=== PATIENT | female | born 1975 | race Caucasian/White ===

== ENCOUNTER 2019-03-03 06:48 | Day surgery (SDC) | payer OTHER ==
[~2019-03-03] VITALS: Ht 170.2 cm; Wt 93.4 kg
[2019-03-03] MEDS ORDERED: CLINDAMYCIN PHOS 600MG/D5W PM 50 ML IV SCH (07:43)
[2019-03-03] MEDS ORDERED: BUPIVACAINE-MPF/EPI 0.25% 30 ML VIAL INJ ONE (09:32)
[2019-03-03] MEDS ORDERED: LIDOCAINE 1% 500 MG/50 ML VIAL ONE (09:33)
[2019-03-03] MEDS ORDERED: PROPOFOL 200 MG/20 ML VIAL IV ONE ×2 (09:38→10:30)
[2019-03-03] MEDS ORDERED: SEVOFLURANE 250 ML BTL INH ONE ×2 (09:38→10:30)
[2019-03-03] MEDS ORDERED: MEPERIDINE 25 MG/ML SYR ONE (09:52)
[2019-03-03] MEDS ORDERED: fentaNYL 0.05 MG/ML VIAL ONE (09:52)
[2019-03-03] MEDS ORDERED: MIDAZOLAM 2 MG/2 ML VIAL ONE (09:52)
[2019-03-03] MEDS ORDERED: LACTATED RINGERS 1,000 ML IV SCH (10:23)
[2019-03-03] MEDS ORDERED: diphenhydrAMINE 50 MG/ML VIAL IVP PRN (10:25)
[2019-03-03] MEDS ORDERED: ONDANSETRON 4 MG/2 ML VIAL IVP PRN (10:25)
[2019-03-03] MEDS ORDERED: HYDROmorphone 1 MG/ML AMP IVP PRN ×2 (10:25→10:45)
[2019-03-03] MEDS ORDERED: MEPERIDINE 25 MG/ML SYR IVP PRN (10:25)
[2019-03-03] MEDS ORDERED: ONDANSETRON 4 MG/2 ML VIAL IV PRN (10:45)
[2019-03-03] MEDS ORDERED: HYDROcodone/APAP 5/325 MG 1 TAB TAB PO PRN (10:45)
[2019-03-03] MEDS ORDERED: MORPHINE SULFATE 4 MG/ML SYR IV PRN (10:45)
[2019-03-03] MEDS ORDERED: MORPHINE SULFATE 2 MG/ML SYR IVP PRN (10:45)
== END 2019-03-03 12:35 | disposition home or self-care (01) ==
LOC: MDS 06:48 → MMU 06:48 → MDS 12:35
PROVIDERS: ATTEND Surgery
DX: D17.21 Benign lipomatous neoplasm of skin and subcutaneous tissue of right arm (principal); I10 Essential (primary) hypertension; E66.9 Obesity, unspecified; Z88.0 Allergy status to penicillin; Z98.890 Other specified postprocedural states; Z68.32 Body mass index [BMI] 32.0-32.9, adult; Z98.51 Tubal ligation status
CPT/HCPCS: 24071; 71045; 88304; J2001; J2175; J2250; J2704; J3010; J3490; J7120

== ENCOUNTER 2020-07-21 07:15 | Day surgery (SDC) | payer OTHER, SELFPAY ==
[~2020-07-21] VITALS: Ht 170.2 cm; Wt 92.5 kg
[2020-07-21] MEDS ORDERED: BUPIVACAINE-MPF 0.25% 30 ML VIAL INJ ONE (10:58)
[2020-07-21] MEDS ORDERED: LIDOCAINE 1% 500 MG/50 ML VIAL ONE (10:59)
[2020-07-21] MEDS ORDERED: oxyCODONE/APAP 5/325 MG 1 TAB TAB PO PRN (11:00)
[2020-07-21] MEDS ORDERED: MEPERIDINE 25 MG/ML SYR IVP PRN (11:00)
[2020-07-21] MEDS ORDERED: ONDANSETRON 4 MG/2 ML VIAL IVP PRN (11:00)
[2020-07-21] MEDS ORDERED: fentaNYL citrate 0.05 MG/ML VIAL IVP PRN (11:00)
[2020-07-21] MEDS ORDERED: LACTATED RINGERS 1,000 ML IV SCH (11:00)
[2020-07-21] MEDS ORDERED: diphenhydrAMINE 50 MG/ML VIAL IVP PRN (11:00)
[2020-07-21] MEDS ORDERED: LIDOCAINE 2% 100 MG/5 ML SYR IVP ONE (11:30)
[2020-07-21] MEDS ORDERED: SEVOFLURANE 250 ML BTL INH ONE (11:30)
[2020-07-21] MEDS ORDERED: LABETALOL 100 MG/20 ML VIAL ONE (11:30)
[2020-07-21] MEDS ORDERED: ONDANSETRON 4 MG/2 ML VIAL ONE (11:30)
[2020-07-21] MEDS ORDERED: METOCLOPRAMIDE 10 MG/2 ML INJ VIAL ONE (11:30)
[2020-07-21] MEDS ORDERED: KETOROLAC 30 MG/ML VIAL ONE (11:30)
[2020-07-21] MEDS ORDERED: NEOSTIGMINE 1:1000 10 MG/10 ML VIAL ONE (11:30)
[2020-07-21] MEDS ORDERED: DEXAMETHASONE 4 MG/ML VIAL ONE (11:30)
[2020-07-21] MEDS ORDERED: GLYCOPYRROLATE 0.2 MG/ML VIAL ONE (11:30)
[2020-07-21] MEDS ORDERED: PROPOFOL 200 MG/20 ML VIAL IV ONE (11:30)
[2020-07-21] MEDS ORDERED: fentaNYL citrate 0.05 MG/ML VIAL ONE (11:30)
[2020-07-21] MEDS ORDERED: ROCURONIUM 50 MG/5 ML VIAL IV ONE (11:30)
== END 2020-07-21 14:28 | disposition home or self-care (01) ==
LOC: MOR 07:15 → MMU 07:16 → MOR 14:28
PROVIDERS: ATTEND Surgery
DX: K64.4 Residual hemorrhoidal skin tags (principal); I10 Essential (primary) hypertension; Z98.51 Tubal ligation status; D17.21 Benign lipomatous neoplasm of skin and subcutaneous tissue of right arm; Z88.0 Allergy status to penicillin; Z88.8 Allergy status to other drugs, medicaments and biological substances; Z79.899 Other long term (current) drug therapy; Z20.828 Contact with and (suspected) exposure to other viral communicable diseases
CPT/HCPCS: 46260; 71045; 81025; J1100; J1885; J2001; J2175; J2405; J2704; J2710; J2765; J3010; J3490; J7120; U0003

== ENCOUNTER 2020-07-23 04:38 | Emergency (ER) | payer OTHER, SELFPAY ==
[~2020-07-23] VITALS: Ht 170.2 cm; Wt 92.5 kg
[2020-07-23 04:40] VITALS: BP 138/88
--- NOTE | 2020-07-23 04:57 | NUR ---
44 Y/O FEMALE C/O UNABLE TO URINATE S/P SURGERY X 2 DAYS. PT WAS TOLD BY PCP TO COME IF UNABLE TO PEE. PT STATES SHE FEEL HER BLADDER IS FULL AND ONLY "A LITTLE BIT COMES OUT". PT STATES 10/10 BURNING RECTAL PAIN. PT HAD OXYCODONE AT 0100 WITH NO RELIEF. SKIN WARM AND DRY. ABD SOFT NON TENDER. CAP REFILL LESS THAN 2 SECONDS. MHX: HTN, HAD HEMMORHOIDS REMOVED SURGICALLY 07/21/20 ALLERGIES: PCN, NORCO
--- NOTE | 2020-07-23 05:07 | NUR ---
Dr Almonte at bedside examining pt.
[2020-07-23] MEDS ORDERED: KETOROLAC 30 MG/ML VIAL IM ONE (05:25)
--- NOTE | 2020-07-23 05:54 | NUR ---
# 16 FR Naylor catheter with 10 ml utilizing sterile technique. Immediate return of 500 ml YELLOW urine noted. Bedside drainage bag placed below level of bladder. Pt tolerated procedure WELL.
--- NOTE | 2020-07-23 06:00 | NUR ---
PT STATES RELIEF OF PAIN AND RELIEF OF BLADDER RETENTION. Addendum: 07/23/20 at 0600 by [email or web address] THANG MADE AWARE.
[2020-07-23 06:45] VITALS: BP 138/88
--- NOTE | 2020-07-23 07:05 | NUR ---
Patient discharged with v/s stable. Written and verbal after care instructions given and explained. Patient alert, oriented and verbalized understanding of instructions. Ambulatory with steady gait. All questions addressed prior to discharge. ID band removed. Patient advised to follow up with PMD. Opportunity to ask questions provided and answered.
== END 2020-07-23 07:05 | disposition home or self-care (01) ==
LOC: MED 04:38
DX: R33.9 Retention of urine, unspecified (principal); I10 Essential (primary) hypertension; Z88.0 Allergy status to penicillin; Z88.6 Allergy status to analgesic agent; Z98.890 Other specified postprocedural states
CPT/HCPCS: 51702; 96372; 99284; J1885

== ENCOUNTER 2020-07-24 08:51 | Emergency (ER) | payer OTHER ==
[~2020-07-24] VITALS: Ht 170.2 cm; Wt 92.5 kg
[2020-07-24 09:03] VITALS: BP 154/100
--- NOTE | 2020-07-24 09:10 | NUR ---
DR. ELKINS AT BEDSIDE EVALUATING PATIENT.
[2020-07-24] MEDS ORDERED: oxyCODONE 10 MG TABER PO STA (09:11)
--- NOTE | 2020-07-24 09:17 | NUR ---
44 YEAR OLD FEMALE COMPLAINS OF NEEDING CATHETER REMOVAL AFTER HEMORRHOID REMOVAL SURGERY X 2 DAYS AGO. PT AOX4, BREATHING EVEN AND UNLABORED, SKIN WARM AND DRY. BED IN LOWEST POSITION, LOCKED, BED RAIL UPX1. PMH - DENIES ALLERGIES - NKA
--- NOTE | 2020-07-24 09:35 | NUR ---
FARIA REMOVED BY COY MARSH
[2020-07-24] MEDS ORDERED: TAMSULOSIN 0.4 MG CAP PO STA (10:11)
--- NOTE | 2020-07-24 10:20 | NUR ---
PT URINATED, ERMD MADE AWARE
--- NOTE | 2020-07-24 10:30 | NUR ---
12ML URINE IN PATIENT BY BLADDER SCANNER
--- NOTE | 2020-07-24 10:50 | NUR ---
Patient discharged with v/s stable. Written and verbal after care instructions about hemorrhoidectomy given and explained. Patient alert, oriented and verbalized understanding of instructions. Ambulatory with steady gait. All questions addressed prior to discharge. ID band removed. Patient advised to follow up with PMD. Rx of miralax powder given. Patient educated on indication of medication including possible reaction and side effects. Opportunity to ask questions provided and answered.
[2020-07-24 10:52] VITALS: BP 154/98
== END 2020-07-24 10:50 | disposition home or self-care (01) ==
LOC: MED 08:51
DX: R33.9 Retention of urine, unspecified (principal); I10 Essential (primary) hypertension; Z46.6 Encounter for fitting and adjustment of urinary device; Z88.0 Allergy status to penicillin; Z98.890 Other specified postprocedural states
CPT/HCPCS: 96360; 96361; 99283